=== PATIENT | male | born 1970 | race Caucasian/White ===

== ENCOUNTER → 2022-07-20 | Outpatient (CLI) | payer OTHER, SELFPAY ==
[2022-07-20 18:01] LABS: AST(SGOT) 15 U/L (15-37); Alanine Aminotransfer ALT/SGPT 18 U/L (16-61); Albumin, Serum 4.2 g/dL (3.2-5.0); Alkaline Phosphatase 107 U/L (45-117); Bilirubin, Direct 0.22 mg/dL (0.00-0.30); Ferritin 519 ng/mL (26-388); GGTP 31 U/L (15-85); Globulin 3.6 g/dL (2.2-4.2); Protein, Total 7.8 g/dL (6.4-8.2)
[2022-07-20 18:06] LABS: Prothrombin Time (Protime)PT. 13.1 SECONDS (11.7-14.9)
[2022-07-20 18:07] LABS: Partial Thromboplast Time 35.4 Seconds (24.1-36.2)
[2022-07-22 19:07] LABS: AFP, Tumor Marker 3.6 ng/mL (0.0-8.4); HCV Quant. RNA PCR HCV Not Detected IU/mL (.)
== END | disposition home or self-care (01) ==
PROVIDERS: PCP Family Medicine; Referring Provider Internal Medicine Gastroenterology; Visit Provider Internal Medicine Gastroenterology
DX: K74.60 Unspecified cirrhosis of liver (principal); K76.0 Fatty (change of) liver, not elsewhere classified
CPT/HCPCS: 36415; 80076; 82105; 82728; 82977; 85610; 85730; 87522